=== PATIENT | female | born 1985 | race Caucasian/White ===

== ENCOUNTER 2022-09-13 04:26 | Day surgery (SDC) | payer OTHER ==
[2022-09-07 14:58] VITALS: BMI 36.2
[2022-09-13] MEDS ORDERED: ACETAMINOPHEN 325 MG TABLET (FP) PO PRN (11:59)
[2022-09-13] MEDS ORDERED: IBUPROFEN 400 MG TABLET (FP) PO PRN (11:59)
[2022-09-13] MEDS ORDERED: PROPOFOL 40 ML ONE (12:27)
[2022-09-13] MEDS ORDERED: MIDAZOLAM HCL 2 MG/2 ML SINGLE DOSE VIAL ONE (12:27)
[2022-09-13] MEDS ORDERED: oxyCODONE HCL 5 MG TABLET PO PRN (13:29)
[2022-09-13] MEDS ORDERED: PROMETHAZINE HCL 25 MG/1 ML VIAL IVPB PRN (13:29)
[2022-09-13] MEDS ORDERED: ACETAMINOPHEN 500 MG TABLET (FP) PO PRN (13:29)
[2022-09-13] MEDS ORDERED: ONDANSETRON 4 MG/2 ML VIAL IVPUSH PRN (13:29)
[2022-09-13] MEDS ORDERED: LACTATED RINGERS SOLUTION 1,000 ML IV SCH (13:30)
[2022-09-13] MEDS ORDERED: ACETAMINOPHEN INJECTION 100 ML IVPB ONE (13:33)
[2022-09-13] MEDS ORDERED: ACETAMINOPHEN 1000 MG/100 ML BAG IVPB ONE (13:37)
[2022-09-13] MEDS ORDERED: oxyCODONE HCL 5 MG TABLET ONE (15:56)
[2022-09-13 17:02] VITALS: BP 135/78; PULSE 81; RESP 16; TEMP 96.4
== END 2022-09-13 16:50 | disposition home or self-care (01) ==
LOC: JASU-SURG 04:26
PROVIDERS: ATTEND Obstetrics & Gynecology
PROC: 0U5B8ZZ Destruction of Endometrium, Via Natural or Artificial Opening Endoscopic (ICD-10-PCS; principal; 2022-09-13 13:00)
DX: N92.0 Excessive and frequent menstruation with regular cycle (principal); N92.6 Irregular menstruation, unspecified
CPT/HCPCS: 81025; 82962; 94760

== ENCOUNTER 2023-07-27 01:00 | Emergency (ER) | payer OTHER ==
[2023-07-27 01:11] VITALS: TEMP 98.4; BMI 34.0
[2023-07-27] MEDS ORDERED: ACETAMINOPHEN INJECTION 100 ML IVPB ONE (02:37)
[2023-07-27] MEDS ORDERED: METOCLOPRAMIDE HCL INJECTION 10 MG/2 ML VIAL ONE (02:37)
[2023-07-27] MEDS: ACETAMINOPHEN 1000 MG/100 ML BAG IVPB ONE (02:41)
[2023-07-27] MEDS: LACTATED RINGERS SOLUTION 1000 ML INFUS.BAG IV ONE (02:41)
[2023-07-27] MEDS: METOCLOPRAMIDE HCL INJECTION 10 MG/2 ML VIAL IVPB ONE (02:42)
[2023-07-27 02:50] LABS: BASO % 0.3 % (0-2.0); HEMATOCRIT 36.8 % (32.4-45.2); HEMOGLOBIN 11.9 GM/dL (10.7-15.3); INR 1.1 (0.83-1.09); LYMPH % 5.1 % (8-40); MCH 26.7 pg (25.7-33.7); MCHC 32.3 g/dl (32.0-36.0); MEAN CELL VOLUME 82.8 fl (80-96); MEAN PLT VOLUME 8.5 fl (7.5-11.1); MONO % 4.7 % (3.8-10.2); NEUT % 88.9 % (42.8-82.8); PLATELET COUNT 360 10^3/uL (134-434); PROTHROMBIN TIME (PATIENT) 12.8 SEC (9.7-13.0); RBC 4.44 M/mm3 (3.60-5.2); WHITE BLOOD COUNT 12.9 K/mm3 (4.0-10.0)
[2023-07-27 02:52] LABS: ACTIVATED PTT 28.4 SECONDS (25.2-36.5)
[2023-07-27 03:00] LABS: POTASSIUM 4.9 mmol/L (3.5-5.1)
[2023-07-27 03:02] LABS: CALCIUM 9.6 mg/dL (8.5-10.1)
[2023-07-27 03:03] LABS: ALBUMIN 3.8 g/dl (3.4-5.0); BLOOD UREA NITROGEN 20.9 mg/dL (7-18)
[2023-07-27 03:06] LABS: CREATININE 0.9 mg/dL (0.55-1.3)
[2023-07-27 03:07] LABS: BILIRUBIN,TOTAL 0.6 mg/dL (0.2-1); TOT PROT 7.6 g/dl (6.4-8.2)
[2023-07-27 04:04] LABS: EPI CELLS >36 /uL (0-25.1); HYALINE CASTS 1 /uL (0-3.1); URINE APPEARANCE CLOUDY; URINE BACTERIA 590 /uL (0-1359); URINE BILIRUBIN NEGATIVE (NEGATIVE); URINE COLOR DK YELLOW; URINE GLUCOSE (UA) NEGATIVE (NEGATIVE); URINE KETONE 1+ (NEGATIVE); URINE LEUK ESTERASE 1+ (NEGATIVE); URINE NITRITE NEGATIVE (NEGATIVE); URINE PROTEIN 1+ (NEGATIVE); URINE WBC 72 /uL (0-25.8)
[2023-07-27 04:28] VITALS: BP 104/59; PULSE 81; RESP 16
== END 2023-07-27 04:28 | disposition home or self-care (01) ==
LOC: JER 01:00
PROC: 3E033NZ Introduction of Analgesics, Hypnotics, Sedatives into Peripheral Vein, Percutaneous Approach (ICD-10-PCS; principal; 2023-07-27)
PROC: 3E033GC Introduction of Other Therapeutic Substance into Peripheral Vein, Percutaneous Approach (ICD-10-PCS; 2023-07-27)
DX: R10.13 Epigastric pain (principal); R11.2 Nausea with vomiting, unspecified; K80.20 Calculus of gallbladder without cholecystitis without obstruction; Z20.822 Contact with and (suspected) exposure to COVID-19
CPT/HCPCS: 0241U-QW; 36415; 76705-TC; 80053; 81003; 83690; 84703; 85025; 85610; 85730; 86850; 86900; 86901; 87086; 99284-25; J0131